=== PATIENT | male | born 1945 | race Caucasian/White ===

== ENCOUNTER 2023-11-12 13:33 | Observation (INO) | payer OTHER, BC ==
[2023-11-12] MEDS ORDERED: ASPIRIN 81 MG CHEWABLE TABLET ONE (14:05)
--- NOTE | 2023-11-12 14:29 | RAD REPORT ---
EXAM DESCRIPTION: RAD - Chest Single View - 11/12/2023 2:19 pm CLINICAL HISTORY: CHEST PAIN Chest pain. COMPARISON: <Comparisons> FINDINGS: Portable technique limits examination quality. Moderate bilateral pulmonary opacities are present likely representing pulmonary edema. The heart is mildly enlarged in size. No displaced fractures.Sternotomy wires. IMPRESSION: Mild CHF.
[2023-11-12 15:05] LABS: Specific Gravity 1.011 (1.005-1.030); Sqamous Epithelial None Seen /HPF (None Seen); Urine Bacteria None Seen /HPF (<20); Urine Bilirubin NEGATIVE (Negative); Urine Blood Negative (Negative); Urine Clarity Clear (Clear); Urine Color Light-Yellow (Yellow); Urine Culture Reflex Order NOT NEEDED; Urine Glucose NEGATIVE (Negative); Urine Ketones NEGATIVE (Negative); Urine Microscopic Reflex YN ORDER UMIC; Urine Mucus Slight /HPF (None Seen); Urine Nitrite NEGATIVE (Negative); Urine Protein NEGATIVE (Negative); Urine RBC <5 /HPF (None Seen); Urine Urobilinogen Normal (Normal); Urine WBC <5 /HPF (<5)
[2023-11-12 15:08] LABS: Absolute Basophils 0.1 K/uL (0-0.5); Absolute Eosinophils 0.2 K/uL (0-0.5); Absolute Lymphocytes (CBC) 1.5 K/uL (0.7-4.9); Absolute Monocytes 0.7 K/uL (0.1-1.3); Basophils % 0.7 % (0-1.3); Eosinophils % 2.6 % (0-4.4); Hematocrit 32.7 % (39.6-49.0); Hemoglobin 10.9 g/dL (13.6-17.9); Lymphocytes % 19.9 % (15.3-44.8); MCHC 33.2 g/dL (32.0-36.0); MCV 90.4 fL (80-100); MPV 7.9 fL (7.6-11.3); Monocytes % 9.1 % (3.3-12.3); Neutrophils % 67.7 % (41.7-73.7); Nucleated Red Blood Cells % 0.1 % (0-0); Platelets 219 thou/uL (152-406); RBC Red Blood Cell Count 3.62 M/uL (4.33-5.43)
[2023-11-12 15:17] LABS: Albumin 3.2 g/dL (3.4-5.0); Albumin/Globulin Ratio 0.8 (1.1-1.8); Anion Gap 6.8 mEq/L (5.0-15.0); Bilirubin Direct 0.1 mg/dL (0-0.2); Bilirubin Indirect, Calculated 0.2 mg/dL (0.2-0.8); Bilirubin Total 0.3 mg/dL (0.2-1.0); Globulin 4.1 g/dL (2.3-3.5); Magnesium 2.2 mg/dL (1.6-2.4); Potassium 3.8 mEq/L (3.5-5.1); Protein, Total 7.3 g/dL (6.4-8.2); Troponin High Sensitivity 3.8 pg/mL (<58.9)
[2023-11-12 15:22] LABS: PT Prothrombin Time 13.1 SECONDS (9.5-12.5); Protime INR 1.2
[2023-11-12] MEDS ORDERED: FUROSEMIDE 20 MG/ 2ML VIAL ONE (17:02)
[2023-11-12] MEDS ORDERED: LEVALBUTEROL 1.25 MG/3 ML NEB ONE (17:02)
[2023-11-12] MEDS ORDERED: IPRATROPIUM BROM 0.5MG/2.5ML ONE (17:02)
[2023-11-12] MEDS ORDERED: METOPROLOL XL 50 MG TAB PO ONE (17:03)
--- NOTE | 2023-11-12 17:21 | ER ---
Nurse's Notes [facility] Name: Eladio Sloan Jr Age: 78 yrs Sex: Male : 1945 Arrival Date: 11/12/2023 Time: 13:33 Bed 8 Private MD: Diagnosis: Chest pain, unspecified;Combined systolic (congestive) and diastolic (congestive) heart failure;Obesity, unspecified;COPD/ Chronic obstructive pulmonary disease, unspecified Presentation: 11/11 14:07 Chief complaint: Patient states: Pt c/o reproducible, non-radiating left side chest tl4 pain x 1 week. Pt states pain has remained consistent. Pt denies associated symptoms including SOB, diaphoresis, nausea, dizziness. Pt had CABG x 3 approx 2 months ago. Surgical scar appears well healed, no s/s of infection. Coronavirus screen: At this time, the client does not indicate any symptoms associated with coronavirus-19. Ebola Screen: No symptoms or risks identified at this time. Initial Sepsis Screen: Does the patient meet any 2 criteria? Yes Does the patient have a suspected source of infection? No. Patient's initial sepsis screen is negative. Risk Assessment: Do you want to hurt yourself or someone else? Patient reports no desire to harm self or others. Onset of symptoms was November 05, 2023. 14:07 Method Of Arrival: EMS: [facility] tl4 14:07 Acuity: ZEYAD 2 tl4 Triage Assessment: 14:20 General: Appears in no apparent distress. Behavior is calm, cooperative. Pain: tl4 Complains of pain in chest. EENT: No deficits noted. No signs and/or symptoms were reported regarding the EENT system. Neuro: Level of Consciousness is awake, alert, obeys commands, Oriented to person, place, time, situation, Company Secretary are equal bilaterally Moves all extremities. Speech is normal, Facial symmetry appears normal, Denies weakness dizziness, paresthesias numbness. Cardiovascular: Reports chest pain, Capillary refill < 3 seconds Patient's skin is warm and dry. Rhythm is sinus rhythm Chest pain is described as Pain is 8 out of 10 on a pain scale. quality is sharp, is located in left began 1 week ago is aggravated by activity, breathing. Respiratory: Airway is patent Respiratory effort is even, unlabored, Respiratory pattern is regular, symmetrical, Breath sounds are clear bilaterally. Denies shortness of breath. GI: No deficits noted. No signs and/or symptoms were reported involving the gastrointestinal system. Bowel sounds present X 4 quads. Abd is soft and non tender. : No deficits noted. No signs and/or symptoms were reported regarding the genitourinary system. Derm: No deficits noted. No signs and/or symptoms reported regarding the dermatologic system. Musculoskeletal: No deficits noted. No signs and/or symptoms reported regarding the musculoskeletal system. Historical: - Allergies: 14:13 Codeine; tl4 14:13 PENICILLINS; tl4 - Home Meds: 14:15 aspirin 81 mg Oral tablet,chewable 1 tab daily [Active]; atorvastatin 40 mg oral tablet tl4 1 tab daily [Active]; benzonatate 200 mg oral capsule 1 cap [Active]; duloxetine 30 mg oral capsule,delayed release (e.c.) 1 cap daily [Active]; lorazepam 0.5 mg Oral tablet 1 tabs daily [Active]; meclizine 25 mg Oral tablet 1 tab daily [Active]; metoprolol succinate 50 mg oral Tablet, Extended Release 24 hr 1 tab 2 times per day [Active]; oxybutynin chloride 5 mg Oral tablet 1 tab 2 times per day [Active]; tolterodine 1 mg oral tablet 1 tab 2 times per day [Active]; - PMHx: 14:15 Chronic obstructive lung disease; Hypertensive disorder; High cholesterol; tl4 - PSHx: 14:13 Coronary artery bypass graft; Carpal tunnel; tl4 14:15 Back surgery; tl4 - Immunization history:: Adult Immunizations unknown. - Infectious Disease History:: Denies. - Social history:: Smoking status: Patient/guardian denies using tobacco, the patient reports quitting approximately 11 years ago. Screenin:23 [facility] ED Fall Risk Assessment (Adult) History of falling in the last 3 months, tl4 including since admission No falls in past 3 months (0 pts) Confusion or Disorientation No (0 pts) Intoxicated or Sedated No (0 pts) Impaired Gait No (0 pts) Mobility Assist Device Used Yes (1 pt) Altered Elimination No (0 pt) Score/Fall Risk Level 0 - 2 = Low Risk Oriented to surroundings, Maintained a safe environment, Educated pt \T\ family on fall prevention, incl call for assistance when getting out of bed, Assessed \T\ reinforced patient's understanding of fall precautions, Hourly rounding (assess needs \T\ fall precautionary measures) done, Used ambulatory aids as needed (educated on \T\ assisted with), Used gait belt as appropriate. Abuse screen: Denies threats or abuse. Denies injuries from another. Nutritional screening: No deficits noted. Tuberculosis screening: No symptoms or risk factors identified. Assessment: 15:03 Reassessment: Patient and/or family updated on plan of care and expected duration. Pain tl4 level reassessed. Patient is alert, oriented x 3, equal unlabored respirations, skin warm/dry/pink. Pt states no changes in condition. Pt denies any needs at this time. Will continue to monitor. 17:00 Reassessment: No changes from previously documented assessment. Patient and/or family mb9 updated on plan of care and expected duration. Pain level reassessed. Patient is alert, oriented x 3, equal unlabored respirations, skin warm/dry/pink. 18:21 Reassessment: No changes from previously documented assessment. Patient and/or family tl4 updated on plan of care and expected duration. Pain level reassessed. Patient is alert, oriented x 3, equal unlabored respirations, skin warm/dry/pink. 19:21 Reassessment: No changes from previously documented assessment. Patient and/or family tl4 updated on plan of care and expected duration. Pain level reassessed. Patient is alert, oriented x 3, equal unlabored respirations, skin warm/dry/pink. Vital Signs: 14:07 BP 140 / 78; Pulse 74; Resp 21; Temp 98.6(O); Pulse Ox 99% on R/A; Weight 96.62 kg; tl4 Height 6 ft. 0 in. ; Pain 6/10; 14:22 BP 149 / 87; Pulse 73; Resp 18; Pulse Ox 100% on R/A; tl4 15:04 BP 141 / 84; Pulse 74; Resp 16; Pulse Ox 100% on R/A; tl4 15:45 BP 141 / 57; Pulse 64; Resp 17; Pulse Ox 97% on R/A; tl4 16:17 BP 163 / 77; Pulse 74; Resp 15; Pulse Ox 98% on R/A; tl4 17:47 Pulse 70; Resp 18; Pulse Ox 100% on R/A; mb9 18:27 BP 137 / 65; Pulse 67; Resp 16; Pulse Ox 98% on R/A; Pain 4/10; tl4 19:21 BP 116 / 92; Pulse 65; Resp 16; Pulse Ox 98% on R/A; tl4 14:07 Body Mass Index 28.89 (96.62 kg, 182.88 cm) tl4 14:07 Pain Scale: Adult tl4 18:27 Pain Scale: Adult tl4 Vitals: 14:22 Cardiac Rhythm Assessment Regular Sinus rhythm. tl4 [place] Coma Score: 14:22 Eye Response: spontaneous(4). Motor Response: obeys commands(6). Verbal Response: tl4 oriented(5). Total: 15. ED Course: 13:52 Patient arrived in ED. em1 13:58 Tc Zhang MD is Attending Physician. yuriy 14:13 Triage completed. tl4 14:13 Arm band placed on right wrist. tl4 14:21 XRAY Chest (1 view) In Process Unspecified. EDMS 14:23 Patient has correct armband on for positive identification. Placed in gown. Bed in low tl4 position. Call light in reach. Side rails up X2. Adult w/ patient. Provided Education on: ED process. Client placed on continuous cardiac and pulse oximetry monitoring. NIBP monitoring applied. evp managing director on. Door closed. Noise minimized. Lights dimmed. Moved to private room. Warm blanket given. 14:23 No provider procedures requiring assistance completed. tl4 14:24 EKG done, by ED staff, reviewed by Tc Zhnag MD. Maintain EMS IV. Dressing intact. tl4 Good blood return noted. Site clean \T\ dry. Gauge \T\ site: 20g Left AC. 15:02 Urinalysis w/ reflexes Sent. tl4 15:02 Lipase Sent. tl4 15:02 Basic Metabolic Panel Sent. tl4 15:02 CBC with Diff Sent. tl4 15:02 LFT's Sent. tl4 15:03 Magnesium Sent. tl4 15:03 NT PRO-BNP Sent. tl4 15:03 PT-INR Sent. tl4 15:03 Troponin HS Sent. tl4 17:19 Jose Valle MD is Hospitalizing Provider. yuriy Administered Medications: 14:05 Drug: Aspirin PO Chewable Tablet 81 mg PO once Route: PO; tl4 18:22 Follow up: Response: No adverse reaction tl4 17:11 Drug: Metoprolol PO 50 mg PO once Route: PO; mb9 18:23 Follow up: Response: No adverse reaction tl4 17:11 Drug: Levalbuterol Inhalation 1.25 mg Inhalation once Route: Inhalation; mb9 18:23 Follow up: Response: No adverse reaction tl4 17:11 Drug: Ipratropium Inhalation Aerosol 0.5 mg Inhalation once Route: Inhalation; mb9 18:23 Follow up: Response: No adverse reaction tl4 17:12 Drug: Furosemide IVP 20 mg IVP once; give over 2 minutes Route: IVP; Site: left mb9 antecubital; 18:22 Follow up: Response: No adverse reaction tl4 Medication: 14:22 VIS not applicable for this client. tl4 Output: 18:09 Urine: 2000ml (Voided); Total: 2000ml. mb9 Outcome: 17:21 Decision to Hospitalize by Provider. [facility] 20:35 Patient left the ED. rv1 Signatures: Dispatcher [employer] EDTc Jewell MD MD cha Martinez, Eric em1 Gabriela Garcia, RN RN mb9 Angie Moody rv1 Guido Wu RN RN tl4
--- NOTE | 2023-11-12 17:21 | EDPHYS ---
Physician Documentation [facility] Name: Eladio Sloan Jr Age: 78 yrs Sex: Male : 1945 Arrival Date: 11/12/2023 Time: 13:33 Bed 8 Private MD: ED Physician Tc Zhang HPI: 11/11 16:53 This 78 yrs old Male presents to ER via EMS with complaints of Chest Pain. [facility] 16:53 The patient or guardian reports chest pain that is located primarily in the anterior yuriy chest wall, left. Onset: this morning, 1 day(s) ago. The pain does not radiate. Associated signs and symptoms: Pertinent positives: cough, lightheadedness, palpitations, shortness of breath. The chest pain is described as a pressure. Modifying factors: The symptoms are alleviated by nothing. the symptoms are aggravated by nothing. Severity of pain: At its worst the pain was mild in the emergency department the pain is unchanged. The patient has experienced similar episodes in the past, a few times. Historical: - Allergies: 14:13 Codeine; tl4 14:13 PENICILLINS; tl4 - Home Meds: 14:15 aspirin 81 mg Oral tablet,chewable 1 tab daily [Active]; atorvastatin 40 mg oral tablet tl4 1 tab daily [Active]; benzonatate 200 mg oral capsule 1 cap [Active]; duloxetine 30 mg oral capsule,delayed release (e.c.) 1 cap daily [Active]; lorazepam 0.5 mg Oral tablet 1 tabs daily [Active]; meclizine 25 mg Oral tablet 1 tab daily [Active]; metoprolol succinate 50 mg oral Tablet, Extended Release 24 hr 1 tab 2 times per day [Active]; oxybutynin chloride 5 mg Oral tablet 1 tab 2 times per day [Active]; tolterodine 1 mg oral tablet 1 tab 2 times per day [Active]; - PMHx: 14:15 Chronic obstructive lung disease; Hypertensive disorder; High cholesterol; tl4 - PSHx: 14:13 Coronary artery bypass graft; Carpal tunnel; tl4 14:15 Back surgery; tl4 - Immunization history:: Adult Immunizations unknown. - Infectious Disease History:: Denies. - Social history:: Smoking status: Patient/guardian denies using tobacco, the patient reports quitting approximately 11 years ago. ROS: 16:57 Constitutional: Negative for fever, chills, and weight loss, Eyes: Negative for injury, yuriy pain, redness, and discharge, ENT: Negative for injury, pain, and discharge, Neck: Negative for injury, pain, and swelling, Abdomen/GI: Negative for abdominal pain, nausea, vomiting, diarrhea, and constipation, Back: Negative for injury and pain, : Negative for injury, bleeding, discharge, and swelling, MS/Extremity: Negative for injury and deformity, Skin: Negative for injury, rash, and discoloration, Neuro: Negative for headache, weakness, numbness, tingling, and seizure, Psych: Negative for depression, anxiety, suicide ideation, homicidal ideation, and hallucinations, Allergy/Immunology: Negative for hives, rash, and allergies, Endocrine: Negative for neck swelling, polydipsia, polyuria, polyphagia, and marked weight changes, Hematologic/Lymphatic: Negative for swollen nodes, abnormal bleeding, and unusual bruising, 16:57 Cardiovascular: Positive for chest pain, palpitations, 16:57 Respiratory: Positive for shortness of breath, Exam: 16:57 Constitutional: This is a well developed, well nourished patient who is awake, alert, yuriy and in no acute distress. Head/Face: Normocephalic, atraumatic. Eyes: Pupils equal round and reactive to light, extra-ocular motions intact. Lids and lashes normal. Conjunctiva and sclera are non-icteric and not injected. Cornea within normal limits. Periorbital areas with no swelling, redness, or edema. ENT: Nares patent. No nasal discharge, no septal abnormalities noted. Tympanic membranes are normal and external auditory canals are clear. Oropharynx with no redness, swelling, or masses, exudates, or evidence of obstruction, uvula midline. Mucous membranes moist. Neck: Trachea midline, no thyromegaly or masses palpated, and no cervical lymphadenopathy. Supple, full range of motion without nuchal rigidity, or vertebral point tenderness. No Meningismus. Chest/axilla: Normal chest wall appearance and motion. Nontender with no deformity. No lesions are appreciated. Cardiovascular: Regular rate and rhythm with a normal S1 and S2. No gallops, murmurs, or rubs. Normal PMI, no JVD. No pulse deficits. Abdomen/GI: Soft, non-tender, with normal bowel sounds. No distension or tympany. No guarding or rebound. No evidence of tenderness throughout. Back: No spinal tenderness. No costovertebral tenderness. Full range of motion. Male : Normal genitalia with no discharge or lesions. Skin: Warm, dry with normal turgor. Normal color with no rashes, no lesions, and no evidence of cellulitis. MS/ Extremity: Pulses equal, no cyanosis. Neurovascular intact. Full, normal range of motion. Neuro: Awake and alert, GCS 15, oriented to person, place, time, and situation. Cranial nerves II-XII grossly intact. Motor strength 5/5 in all extremities. Sensory grossly intact. Cerebellar exam normal. Normal gait. Psych: Awake, alert, with orientation to person, place and time. Behavior, mood, and affect are within normal limits. 16:57 ECG was reviewed by the Attending Physician. 16:57 Respiratory: Exam negative for the patient does not display signs of respiratory distress, Respirations: normal, no acute changes, Breath sounds: are clear throughout, no bronchial sounds, no decreased breath sounds, no rales, rhonchi, no stridor, no wheezing, Vital Signs: 14:07 BP 140 / 78; Pulse 74; Resp 21; Temp 98.6(O); Pulse Ox 99% on R/A; Weight 96.62 kg; tl4 Height 6 ft. 0 in. ; Pain 6/10; 14:22 BP 149 / 87; Pulse 73; Resp 18; Pulse Ox 100% on R/A; tl4 15:04 BP 141 / 84; Pulse 74; Resp 16; Pulse Ox 100% on R/A; tl4 15:45 BP 141 / 57; Pulse 64; Resp 17; Pulse Ox 97% on R/A; tl4 16:17 BP 163 / 77; Pulse 74; Resp 15; Pulse Ox 98% on R/A; tl4 17:47 Pulse 70; Resp 18; Pulse Ox 100% on R/A; mb9 18:27 BP 137 / 65; Pulse 67; Resp 16; Pulse Ox 98% on R/A; Pain 4/10; tl4 19:21 BP 116 / 92; Pulse 65; Resp 16; Pulse Ox 98% on R/A; tl4 14:07 Body Mass Index 28.89 (96.62 kg, 182.88 cm) tl4 14:07 Pain Scale: Adult tl4 18:27 Pain Scale: Adult tl4 [place] Coma Score: 14:22 Eye Response: spontaneous(4). Motor Response: obeys commands(6). Verbal Response: tl4 oriented(5). Total: 15. MDM: 13:58 Patient medically screened. yuriy 17:00 Antibiotic administration: Not indicated. Differential diagnosis: Anemia Anxiety yuriy Reaction asthma, Bronchitis CHF exacerbation, Chronic Obstructive Pulmonary Disease abnormal EKG, acute myocardial infarction, acute pericarditis, anxiety, coronary artery disease congestive heart failure costochondritis, hiatal hernia, pancreatitis, pericarditis, pneumonia, pulmonary embolus, thoracic aortic disection, unstable angina, Myocardial Infarction pneumonia, pulmonary edema, Pulmonary Embolism reactive airway disease, Sepsis. HEART Score: History: Slightly Suspicious (0), ECG: Normal (0), Age: > or = 65 years (2), Risk Factors: > or = 3 Risk factors for atherosclerotic disease (2), [Hypercholesterolemia] [Hypertension] [DM] [+ Family HX] [Obesity] Troponin: < or = 1 x Normal Limit (0). The patient was given aspirin in the Emergency Department. SAL Risk Score: 1 - patient's age is greater or equal to 65 years, 1 - Three or more CAD risk factors, 1- Known CAD, 1 - ASA use in past 7 days, TOTAL SCORE = 4. Immunization status: Pneumococcal vaccine: within last 5 years. Influenza vaccine: within last 5 years. Data reviewed: vital signs, nurses notes, lab test result(s), EKG, radiologic studies, plain films. Consideration of Admission/Observation Patient was admitted/placed on observation. Escalation of care including admission/observation considered. I considered the following discharge prescriptions or medication management in the emergency department Medications were administered in the Emergency Department. See MAR. Independent interpretation of the following test(s) in the Emergency Department EKG: See my EKG interpretation above. Test considered but Not performed: CT: no ct chest . Care significantly affected by the following chronic conditions: Hypertension, Chronic Obstructive Pulmonary Disease, Obesity, cabg, cad. Counseling: I had a detailed discussion with the patient and/or guardian regarding the historical points, exam findings, and any diagnostic results supporting the discharge/admit diagnosis, lab results, radiology results, the need for further work-up and treatment in the hospital. 11/11 14:00 Order name: Basic Metabolic Panel; Complete Time: 16:47 11/11 14:00 Order name: CBC with Diff; Complete Time: 16:47 [facility] 11/11 14:00 Order name: LFT's; Complete Time: 16:47 11/11 14:00 Order name: Magnesium; Complete Time: 16:47 11/11 14:00 Order name: NT PRO-BNP; Complete Time: 16:47 11/11 14:00 Order name: PT-INR; Complete Time: 16:47 [facility] 11/11 14:00 Order name: Troponin HS; Complete Time: 16:47 11/11 14:00 Order name: Lipase; Complete Time: 16:47 [facility] 11/11 14:00 Order name: Urinalysis w/ reflexes; Complete Time: 16:47 [facility] 11/11 16:53 Order name: Troponin HS: 5pm; Complete Time: 20:18 [facility] 11/11 18:47 Order name: CBC with Automated Diff EDMS 11/11 18:47 Order name: CBC with Automated Diff EDMS 11/11 18:47 Order name: Comprehensive Metabolic Panel EDMS 11/11 18:47 Order name: Comprehensive Metabolic Panel EDMS 11/11 18:47 Order name: Lipid Profile EDMS 11/11 18:47 Order name: Lipid Profile EDMS 11/11 18:47 Order name: Magnesium EDMS 11/11 18:47 Order name: Magnesium EDMS 11/11 18:47 Order name: Troponin High Sensitivity EDMS 11/11 18:47 Order name: Troponin High Sensitivity EDMS 11/11 18:47 Order name: Troponin High Sensitivity EDMS 11/11 14:00 Order name: XRAY Chest (1 view); Complete Time: 16:47 11/11 18:47 Order name: CONS Physician Consult EDMS 11/11 14:00 Order name: Cardiac monitoring; Complete Time: 14:03 [facility] 11/11 14:00 Order name: EKG - Nurse/Tech; Complete Time: 14:03 [facility] 11/11 14:00 Order name: IV Saline Lock; Complete Time: 14:03 [facility] 11/11 14:00 Order name: Labs collected and sent; Complete Time: 15:02 [facility] 11/11 14:00 Order name: O2 Per Protocol; Complete Time: 14:03 [facility] 11/11 14:00 Order name: O2 Sat Monitoring; Complete Time: 14:03 yuriy EC:57 Rate is 71 beats/min. Rhythm is regular. QRS [place] is Normal. IA interval is normal. QRS yuriy interval is normal. QT interval is normal. No Q waves. T waves are Normal. No ST changes noted. Clinical impression: Normal ECG and No evidence of ischemia. Interpreted by me. Reviewed by me. Administered Medications: 14:05 Drug: Aspirin PO Chewable Tablet 81 mg PO once Route: PO; tl4 18:22 Follow up: Response: No adverse reaction tl4 17:11 Drug: Metoprolol PO 50 mg PO once Route: PO; mb9 18:23 Follow up: Response: No adverse reaction tl4 17:11 Drug: Levalbuterol Inhalation 1.25 mg Inhalation once Route: Inhalation; mb9 18:23 Follow up: Response: No adverse reaction tl4 17:11 Drug: Ipratropium Inhalation Aerosol 0.5 mg Inhalation once Route: Inhalation; mb9 18:23 Follow up: Response: No adverse reaction tl4 17:12 Drug: Furosemide IVP 20 mg IVP once; give over 2 minutes Route: IVP; Site: left mb9 antecubital; 18:22 Follow up: Response: No adverse reaction tl4 Disposition Summary: 11/12/23 17:21 Hospitalization Ordered Notes: Hospitalization Status: Observation yuriy Provider: Jose Valle cha Location: Telemetry/MedSurg (observation) yuriy Condition: Fair yuriy Problem: new yuriy Symptoms: have improved yuriy Bed/Room Type: Standard [facility] Room Assignment: 425(11/12/23 19:03) Diagnosis - Chest pain, unspecified yuriy - Combined systolic (congestive) and diastolic (congestive) heart failure yuriy - Obesity, unspecified yuriy - COPD/ Chronic obstructive pulmonary disease, unspecified yuriy Forms: - Medication Reconciliation Form yuriy - SBAR form yuriy - Leadership Thank You Letter yuriy Signatures: Dispatcher [employer] Tc Vargas MD MD cha Waters, Shelly, FLIGHT OPERATIONS COORDINATOR-C FLIGHT OPERATIONS COORDINATOR-Shara Odell, WANDA RN Gabriela Perea RN RN mb9 Guido Wu RN RN tl4 Corrections: (The following items were deleted from the chart) 14:00 14:00 BASIC METABOLIC PANEL+C.LAB.BRZ ordered. EDAR EDMS 14:00 14:00 CBC+H.LAB.BRZ ordered. EDMS EDMS 14:00 14:00 HEPATIC FUNCTION+C.LAB.BRZ ordered. EDMS EDMS 14:00 14:00 MAGNESIUM+C.LAB.BRZ ordered. EDMS EDMS 14:00 14:00 PROBNP+C.LAB.BRZ ordered. EDMS EDMS 14:00 14:00 PROTIME (+INR)+COAG.LAB.BRZ ordered. EDMS EDMS 14:00 14:00 Troponin High Sensitivity+C.LAB.BRZ ordered. EDMS EDMS 14:00 14:00 LIPASE+C.LAB.BRZ ordered. EDMS EDMS 14:00 14:00 Urinalysis+U.LAB.BRZ ordered. EDMS EDMS 14:00 14:00 Chest Single View+RAD.RAD.BRZ ordered. EDMS EDMS 19:03 17:21 yuriy cg
[2023-11-12] MEDS ORDERED: MAGNESIUM HYDROXIDE 8% 30 ML PO PRN (18:39)
[2023-11-12] MEDS ORDERED: LORAZEPAM 0.5 MG TABLET PO PRN (18:46)
--- NOTE | 2023-11-12 20:12 | P.HP ---
Certification for Inpatient Patient admitted to: Observation With expected LOS: <2 Midnights Patient will require the following post-hospital care: None Practitioner: I am a practitioner with admitting privileges, knowledge of patient current condition, hospital course, and medical plan of care. Services: Services provided to patient in accordance with Admission requirements found in Title 42 Section 412.3 of the Code of Federal Regulations <Jojo Mckeon - Last Filed: 11/12/23 20:03> Patient History Date of Service: 11/12/23 Reason for admission: CP, SOB History of Present Illness: Mr. Sloan is a 78-year-old male with a past medical history of hypertension, hyperlipidemia, COPD, CHF, coronary artery disease. He had a CABG in September of this year. As his children live in this area he moved in with his daughter, Padmini Peters. He has been going to cardiac rehab here in [place] twice a week for 2 weeks. On arrival today at rehab, he complained of a bit of chest pressure on the left and some shortness of breath. He was sent to the emergency department for evaluation. In the emergency department his vitals were consistent in the 140s/80s, heart rate in the 70s, respiratory rate 18, oxygen saturations between 97%-100%. He received aspirin 81 mg p.o., Xopenex and Atrovent x 1 treatment, metoprolol 50 mg p.o., Lasix 20 mg IV. EKG heart rate 71, normal sinus rhythm, no ectopy, QTc 419. Lab evaluation shows a troponin of 3.4, normal electrolytes, and mild anemia at 10.9 and 32.7 otherwise normal CBC, liver enzymes are within normal, BNP is elevated at 502, magnesium 2.2 urinalysis normal, lipase 18. Radiologic evaluation shows "moderate bilateral pulmonary opacities are present likely representing pulmonary edema. The heart is mildly enlarged in size. No displaced fractures. Sternotomy wires. Impression mild CHF." Will observe Mr. Sloan overnight for serial troponins and evaluation of his respiratory status. He will likely be discharged in the morning. Home medications list reviewed: Yes - Past Medical/Surgical History Has patient received pneumonia vaccine in the past: No Diabetic: No -: CAD -: HTN -: HLD -: COPD -: CABG -: Carpal tunnel -: back Psychosocial/ Personal History: His in November of last year. They lived near [place]. Mr. Sloan had a CABG in September 2023 in [place]. All of his children live in this area. He came down to live with his daughter Padmini Peters and has been going for 2 weeks to [facility] cardiac rehab. He has a walker and a wheelchair - Family History Family History: Reviewed- Non-Contributory - Social History Smoking Status: Former smoker Alcohol use: No CD- Drugs: No Caffeine use: Yes Place of Residence: Home <LindaJojo Hidalgo - Last Filed: 11/12/23 20:03> Date of Service: 11/12/23 <Adali Smith - Last Filed: 11/12/23 22:46> Allergies codeine Allergy (Verified 11/12/23 20:04) Penicillins Allergy (Verified 11/12/23 20:04) Review of Systems 10-point ROS is otherwise unremarkable General: As per HPI Respiratory: As per HPI Cardiovascular: As per HPI <MckeonVickieedda Hidalgo - Last Filed: 11/12/23 20:03> Physical Examination - Physical Exam General: Alert, In no apparent distress, Oriented x3, Obese, Other (pale) HEENT: Atraumatic, Normocephalic, PERRLA Neck: JVD not distended Respiratory: Normal air movement, Diminished Cardiovascular: Normal pulses, Regular rate/rhythm Capillary refill: <2 Seconds Gastrointestinal: Soft and benign Musculoskeletal: No clubbing, No swelling Integumentary: Other (pale, well approximated, healing sternal scar) Neurological: Normal speech, Normal tone Lymphatics: No axilla or inguinal lymphadenopathy External genitalia: Deferred Rectal: Deferred - Studies Laboratory Data (last 24 hrs) 11/12/23 11/12/23 11/12/23 14:34 14:34 14:34 WBC 7.40 Hgb 10.9 L Hct 32.7 L Plt Count 219 PT 13.1 H INR 1.20 Sodium 137 Potassium 3.8 BUN 25 H Creatinine 0.85 Glucose 94 Magnesium 2.2 Total Bilirubin 0.3 AST 21 ALT 34 Alkaline Phosphatase 65 Lipase 18 <Jojo Mckeon Rocky - Last Filed: 11/12/23 20:03> - Studies Laboratory Data (last 24 hrs) 11/12/23 11/12/23 11/12/23 14:34 14:34 14:34 WBC 7.40 Hgb 10.9 L Hct 32.7 L Plt Count 219 PT 13.1 H INR 1.20 Sodium 137 Potassium 3.8 BUN 25 H Creatinine 0.85 Glucose 94 Magnesium 2.2 Total Bilirubin 0.3 AST 21 ALT 34 Alkaline Phosphatase 65 Lipase 18 <Adali Smith Gabbie - Last Filed: 11/12/23 22:46> Assessment and Plan - Plan Chest pain with mild CHF: amiodarone 200mg po daily Lasix 20mg IV BID Monitor and replete electrolytes ASA 81mg po daily COPD: Nebs q 6h Spot check pulse ox O2 prn HTN: Lisinopril 2.5mg daily Metoprolol 50mg BID HLD: Atorvastatin 40mg po q hs Depression/anxiety: lorazepam 0.5mg po TID prn Duloxetine 30mg po daily Fall precautions DVT/GI prophylaxis: Lovenox/Protonix Discharge Plan: Home Plan to discharge in: 24 Hours - Advance Directives Does patient have a Living Will: Yes Does patient have a Durable POA for Healthcare: Yes <Jojo Mckeon - Last Filed: 11/12/23 20:03> - Plan Pt seen and examined. I agree with the note by the SUPER[employer]OR [employer]IN[employer]. Pt is a 78yo male with past medical history of hypertension, hyperlipidemia, COPD, CHF, and coronary artery disease s/p CABG in September who presents with chest pain and SOB. Of note, pt moved to [place] to live with his daughter. He has been going to cardiac rehab twice a week. While at the rehab today, pt complained of SOB and chest pressure and he was sent to the ER for evaluation. On arrival, EKG showed normal sinus rhythm with QTc 419. Lab studies show troponin of 3.4, normal electrolytes, hgb 10.9, BNP 502, magnesium 2.2 urinalysis normal, and lipase 18. CXR shows pulmonary edema. The heart is mildly enlarged in size. No displaced fractures with sternotomy wires in place. At bedside, pt is in NAD. A/P: Chest pain: Likely musculoskeletal. Will continue prn pain med. and trend troponin ( 3.4) CHF: BNP is 502. Will f/u Echo. Continue lasix 20mg iv BID, strict I/O and daily weight. Hx of CAD s/p CABG in sep, 2023. Will continue cardiac rehab when discharged. Hx of COPD: continue prn duoneb and oxygen. Continue home meds for other chronic medically <Adali Smith - Last Filed: 11/12/23 22:46>
[2023-11-12] MEDS ORDERED: SODIUM CHLORIDE 0.9% 10ML INJ IV PRN (20:31)
[2023-11-12] MEDS: ALBUTEROL 2.5 MG/3 ML NEB SOL NEB SCH (20:53)
[2023-11-12] MEDS: DULOXETINE 30 MG CAP PO SCH (21:34)
[2023-11-12] MEDS: ATORVASTATIN 40 MG TAB PO SCH (21:34)
[2023-11-12] MEDS: ENOXAPARIN 40 MG/0.4 ML SQ SCH (21:34)
[2023-11-12] MEDS: METOPROLOL TAR 50 MG TAB PO SCH (21:35)
[2023-11-12] MEDS: LORAZEPAM 0.5 MG TABLET PO SCH (21:35)
[2023-11-12] MEDS: TRAMADOL HCL 50 MG TAB PO PRN (21:47)
[2023-11-12 23:40] VITALS: O2SAT 98
[2023-11-13 04:19] LABS: Absolute Basophils 0.1 K/uL (0-0.5); Absolute Eosinophils 0.2 K/uL (0-0.5); Absolute Lymphocytes (CBC) 1.5 K/uL (0.7-4.9); Absolute Monocytes 0.7 K/uL (0.1-1.3); Absolute Neutrophil 4.2 K/uL (1.8-8.0); Basophils % 0.8 % (0-1.3); Eosinophils % 2.6 % (0-4.4); Hematocrit 29.6 % (39.6-49.0); Lymphocytes % 22.1 % (15.3-44.8); MCH 30.4 pg (27.0-35.0); MCHC 33.9 g/dL (32.0-36.0); MCV 89.7 fL (80-100); MPV 7.5 fL (7.6-11.3); Monocytes % 10.9 % (3.3-12.3); Neutrophils % 63.6 % (41.7-73.7); Nucleated Red Blood Cells % 0.1 % (0-0); Platelets 205 thou/uL (152-406); Red Cell Distribution Width 14.5 % (12.1-15.2)
[2023-11-13 04:48] LABS: Albumin 3.2 g/dL (3.4-5.0); Albumin/Globulin Ratio 0.9 (1.1-1.8); Anion Gap 4.8 mEq/L (5.0-15.0); Bilirubin Total 0.3 mg/dL (0.2-1.0); Globulin 3.5 g/dL (2.3-3.5); Magnesium 2.4 mg/dL (1.6-2.4); Potassium 3.8 mEq/L (3.5-5.1); Protein, Total 6.7 g/dL (6.4-8.2); Troponin High Sensitivity 4.2 pg/mL (<58.9)
[2023-11-13 06:48] VITALS: BMI 28.8
[2023-11-13] MEDS: AMIODARONE HCL 200 MG TAB PO SCH (09:08)
[2023-11-13] MEDS: lisinopriL 5 MG TAB PO SCH (09:08)
[2023-11-13] MEDS: FERROUS SULFATE 325 MG TAB PO SCH (09:08)
[2023-11-13] MEDS: FUROSEMIDE 20 MG/ 2ML VIAL IV SCH (09:08)
[2023-11-13] MEDS: ASPIRIN EC 81 MG TAB PO SCH (09:08)
[2023-11-13] MEDS: PANTOPRAZOLE 40 MG INJ IVP SCH (09:09)
[2023-11-13] MEDS ORDERED: POLYETHYL GLY 3350 17 GM/DOSE PO PRN (09:55)
--- NOTE | 2023-11-13 10:02 | P.PN ---
Subjective Date of Service: 11/13/23 Chief Complaint: CP, SOB Subjective: No C/O voiced, Improving (Denies CP, SOB overnight) <Jojo Mckeon - Last Filed: 11/13/23 10:00> Date of Service: 11/13/23 <Adali Smith - Last Filed: 11/13/23 13:01> Review of Systems 10-point ROS is otherwise unremarkable General: Weakness, Malaise, As per HPI Respiratory: As per HPI Cardiovascular: As per HPI Neurological: As per HPI <Jojo Mckeon - Last Filed: 11/13/23 10:00> Physical Examination - Vital Signs Temperature: 97.5 F Blood Pressure: 125/68 Pulse: 82 Respirations: 16 Pulse Ox (%): 93 - Physical Exam General: Alert, In no apparent distress, Oriented x3 HEENT: Atraumatic, Normocephalic Neck: JVD not distended Respiratory: Clear to auscultation bilaterally, Normal air movement Cardiovascular: Regular rate/rhythm, Normal S1 S2 Capillary refill: <2 Seconds Gastrointestinal: Soft and benign Musculoskeletal: No clubbing, No swelling Integumentary: No rashes, Other (mild pallor) Neurological: Normal affect, Abnormal strength Lymphatics: No axilla or inguinal lymphadenopathy External genitalia: Deferred Rectal: Deferred - Studies Laboratory Data (last 24 hrs) 11/12/23 11/12/23 11/12/23 14:34 14:34 14:34 WBC 7.40 Hgb 10.9 L Hct 32.7 L Plt Count 219 PT 13.1 H INR 1.20 Sodium 137 Potassium 3.8 BUN 25 H Creatinine 0.85 Glucose 94 Magnesium 2.2 Total Bilirubin 0.3 AST 21 ALT 34 Alkaline Phosphatase 65 Lipase 18 <Jojo Mckeon - Last Filed: 11/13/23 10:00> - Studies Laboratory Data (last 24 hrs) 11/12/23 11/12/23 11/12/23 14:34 14:34 14:34 WBC 7.40 Hgb 10.9 L Hct 32.7 L Plt Count 219 PT 13.1 H INR 1.20 Sodium 137 Potassium 3.8 BUN 25 H Creatinine 0.85 Glucose 94 Magnesium 2.2 Total Bilirubin 0.3 AST 21 ALT 34 Alkaline Phosphatase 65 Lipase 18 <Adali Smith - Last Filed: 11/13/23 13:01> Assessment And Plan - Plan Chest pain with mild CHF: amiodarone 200mg po daily Lasix 20mg IV BID Monitor and replete electrolytes ASA 81mg po daily COPD: Nebs q 6h Spot check pulse ox O2 prn HTN: Lisinopril 2.5mg daily Metoprolol 50mg BID HLD: Atorvastatin 40mg po q hs Depression/anxiety: lorazepam 0.5mg po TID prn Duloxetine 30mg po daily Fall precautions PT eval SW eval - pt might greatly benefit from IPR DVT/GI prophylaxis: Lovenox/Protonix <Jojo Mckeon - Last Filed: 11/13/23 10:00> - Plan Pt seen and examined. I agree with the note by the THERMODYNAMICS PROFESSOR. Continue home cardiac meds. He has a lot of stressors in his life. Consulted PT. Pt may benefit from inpatient rehab placement. <Adali Smith - Last Filed: 11/13/23 13:01>
--- NOTE | 2023-11-13 13:39 | EKG ---
Test Date: 2023-11-12 Test Time: 13:53:54 Unloading Checker: TL MEASUREMENT RESULTS: Intervals: Rate: 71 GA: 204 QRSD: 94 QT: 386 QTc: 419 [place]: P: 54 GA: 204 QRS: 75 T: 50 INTERPRETIVE STATEMENTS: Normal sinus rhythm Normal ECG No previous ECG available for comparison Electronically Signed On 11-13-23 13:37:29 CDT by Vaughn Corea
--- NOTE | 2023-11-13 15:56 | P.DS ---
Admission Date: 11/12/23 Discharge Date: 11/13/23 Comment: Too high level for inpatient rehab. Continue outpatient cardiac rehab Reason for Admission: AALIYAH, NALLELY Consultations: Dr. Corea Physical Therapy Brief History of Present Illness: Mr. Sloan is a 78-year-old male with a past medical history of hypertension, hyperlipidemia, COPD, CHF, coronary artery disease. He had a CABG in September of this year. As his children live in this area he moved in with his daughter, Padmini Peters. He has been going to cardiac rehab here in [place] twice a week for 2 weeks. On arrival today at rehab, he complained of a bit of chest pressure on the left and some shortness of breath. He was sent to the emergency department for evaluation. In the emergency department his vitals were consistent in the 140s/80s, heart rate in the 70s, respiratory rate 18, oxygen saturations between 97%-100%. He received aspirin 81 mg p.o., Xopenex and Atrovent x 1 treatment, metoprolol 50 mg p.o., Lasix 20 mg IV. EKG heart rate 71, normal sinus rhythm, no ectopy, QTc 419. Lab evaluation shows a troponin of 3.4, normal electrolytes, and mild anemia at 10.9 and 32.7 otherwise normal CBC, liver enzymes are within normal, BNP is elevated at 502, magnesium 2.2 urinalysis normal, lipase 18. Radiologic evaluation shows "moderate bilateral pulmonary opacities are present likely representing pulmonary edema. The heart is mildly enlarged in size. No displaced fractures. Sternotomy wires. Impression mild CHF." Will observe Mr. Sloan overnight for serial troponins and evaluation of his respiratory status. He will likely be discharged in the morning. Hospital Course: There were no complications over the course of the evening. Mr. Sloan is feeling well, denies chest pain, denies shortness of breath. His laboratory evaluation was negative. He was cleared for outpatient rehab by Dr. Corea. He worked with PT and is quite high functioning. <Jojo Mckeon - Last Filed: 11/13/23 15:57> Admission Date: 11/12/23 Discharge Date: 11/13/23 Hospital Course: Pt seen and examined. I agree with the note by the SCRUBBER MACHINE TENDER. Cardiology evaluated pt and cleared him for discharge. The chest pain is musculoskeletal. Continue cardiac rehab. Ok to discharge pt. <Adali Smith C - Last Filed: 11/13/23 17:09> Disposition: ROUTINE DISCHARGE Discharge Condition: GOOD Vital Signs/Physical Exam: Temp Pulse Resp BP Pulse Ox 98 F 73 15 133/63 92 11/13/23 11:45 11/13/23 11:45 11/13/23 11:45 11/13/23 11:45 11/13/23 11:45 General: Alert, In no apparent distress, Oriented x3 HEENT: Atraumatic, Normocephalic, PERRLA Neck: 2+ carotid pulse no bruit, JVD not distended Respiratory: Clear to auscultation bilaterally, Normal air movement Cardiovascular: Normal pulses, Regular rate/rhythm Capillary refill: <2 Seconds Gastrointestinal: Soft and benign Musculoskeletal: No clubbing, No swelling Integumentary: No rashes Neurological: Normal speech, Sensation intact Lymphatics: No axilla or inguinal lymphadenopathy External genitalia: Deferred Laboratory Data at Discharge: WBC 6.70 thou/uL (4.3-10.9) 11/13/23 04:10 Hgb 10.0 g/dL (13.6-17.9) L D 11/13/23 04:10 Hct 29.6 % (39.6-49.0) L 11/13/23 04:10 Plt Count 205 thou/uL (152-406) 11/13/23 04:10 PT 13.1 SECONDS (9.5-12.5) H 11/12/23 14:34 INR 1.20 11/12/23 14:34 Sodium 141 mEq/L (136-145) 11/13/23 04:10 Potassium 3.8 mEq/L (3.5-5.1) 11/13/23 04:10 BUN 26 mg/dL (7-18) H 11/13/23 04:10 Creatinine 0.85 mg/dL (0.70-1.30) 11/13/23 04:10 Glucose 109 mg/dL (74-106) H 11/13/23 04:10 Magnesium 2.4 mg/dL (1.6-2.4) 11/13/23 04:10 Total Bilirubin 0.3 mg/dL (0.2-1.0) 11/13/23 04:10 AST 18 U/L (15-37) 11/13/23 04:10 ALT 31 U/L (16-61) 11/13/23 04:10 Alkaline Phosphatase 59 U/L (45-117) 11/13/23 04:10 Triglycerides 59 mg/dL (<150) 11/13/23 04:10 Cholesterol 97 mg/dL (<200) 11/13/23 04:10 HDL Cholesterol 42 mg/dL (40-60) 11/13/23 04:10 Cholesterol/HDL Ratio 2.31 11/13/23 04:10 Lipase 18 U/L (13-75) 11/12/23 14:34 <Mckeon,Jojo Rocky - Last Filed: 11/13/23 15:57> Vital Signs/Physical Exam: Temp Pulse Resp BP Pulse Ox 97.4 F 67 16 114/55 L 92 11/13/23 15:55 11/13/23 15:55 11/13/23 15:55 11/13/23 15:55 11/13/23 15:55 Laboratory Data at Discharge: WBC 6.70 thou/uL (4.3-10.9) 11/13/23 04:10 Hgb 10.0 g/dL (13.6-17.9) L D 11/13/23 04:10 Hct 29.6 % (39.6-49.0) L 11/13/23 04:10 Plt Count 205 thou/uL (152-406) 11/13/23 04:10 PT 13.1 SECONDS (9.5-12.5) H 11/12/23 14:34 INR 1.20 11/12/23 14:34 Sodium 141 mEq/L (136-145) 11/13/23 04:10 Potassium 3.8 mEq/L (3.5-5.1) 11/13/23 04:10 BUN 26 mg/dL (7-18) H 11/13/23 04:10 Creatinine 0.85 mg/dL (0.70-1.30) 11/13/23 04:10 Glucose 109 mg/dL (74-106) H 11/13/23 04:10 Magnesium 2.4 mg/dL (1.6-2.4) 11/13/23 04:10 Total Bilirubin 0.3 mg/dL (0.2-1.0) 11/13/23 04:10 AST 18 U/L (15-37) 11/13/23 04:10 ALT 31 U/L (16-61) 11/13/23 04:10 Alkaline Phosphatase 59 U/L (45-117) 11/13/23 04:10 Triglycerides 59 mg/dL (<150) 11/13/23 04:10 Cholesterol 97 mg/dL (<200) 11/13/23 04:10 HDL Cholesterol 42 mg/dL (40-60) 11/13/23 04:10 Cholesterol/HDL Ratio 2.31 11/13/23 04:10 Lipase 18 U/L (13-75) 11/12/23 14:34 <Adali Smith - Last Filed: 11/13/23 17:09> Diet: AHA Activity: Ad chevy <Jojo Mckeon - Last Filed: 11/13/23 15:57> <Adali Smith - Last Filed: 11/13/23 17:09> Home Medications: RX: Albuterol Neb [Proventil 0.083% Neb Soln] 2.5 mg NEB [id number] 30 Days #120 amp 11/13/23 RX: Amiodarone HCl [Cordarone*] 200 mg PO DAILY 30 Days #30 tab 11/13/23 RX: Atorvastatin Calcium [Lipitor] 40 mg PO BEDTIME 30 Days #30 tab 11/13/23 RX: Metoprolol Tartrate [Lopressor*] 50 mg PO BID 30 Days #30 tab 11/13/23 RX: Polyethyl Gly 3350 [Glycolax*] 17 gm PO DAILY #1 udbot 11/13/23 New Medications: RX: Albuterol Neb [Proventil 0.083% Neb Soln] 2.5 mg NEB [id number] 30 Days #120 amp RX: Amiodarone HCl [Cordarone*] 200 mg PO DAILY 30 Days #30 tab RX: Polyethyl Gly 3350 [Glycolax*] 17 gm PO DAILY #1 udbot RX: Atorvastatin Calcium [Lipitor] 40 mg PO BEDTIME 30 Days #30 tab RX: Metoprolol Tartrate [Lopressor*] 50 mg PO BID 30 Days #30 tab Physician Discharge Instructions: [place] to DC IV and DC home Follow-up with primary care provider in 1 to 2 weeks Follow-up with cardiology in 1 to 2-week Please call the inpatient unit for any questions or concerns regarding hospital stay Return to the ER for worsening symptoms Continue current medications, return to Cardiac Rehab as scheduled Followup: OOT,OOT [Primary Care Provider] - Vaughn Corea MD [ACTIVE - CAN ADMIT] -
[2023-11-13 16:34] VITALS: BP 114/55; TEMP 97.4
--- NOTE | 2023-11-13 20:25 | CON ---
Date of Consultation: 11/13/2023 Reason For Consultation: Chest pain. History Of Present Illness: This is a 78-year-old male with history of coronary artery disease, stat us post triple-vessel CABG back in September at [facility] in [place], has history of hypertension, dysl ipidemia, COPD, CHF, who presented with chest pain above the left side, sharp in nature and it gets e xacerbated with palpation of the chest wall, not related to exertion. No exertional symptoms. Has s hortness of breath with minimal exertion. He has been doing cardiac rehab and denies having any exer tional chest pain. Past Medical History: As outlined above in the HPI. Medications: Refer reconciliation sheet for detailed list. Allergies: CODEINE AND PENICILLIN. Family History: No premature coronary artery disease or cancer. Social History: Does not smoke or drink. Does not use any drugs. Review of Systems: All systems reviewed are negative except mentioned in HPI. Physical Examination: Vital Signs: Reviewed. Head and Neck: Pupils are equal, reactive to light. Intact eye movements. No JVD. No cervical lym phadenopathy. Neck is supple. Thyroid is not enlarged. Lungs: Clear to auscultation bilaterally. No rhonchi, rales, or crackles. No accessory muscle use. Heart: Regular rate and rhythm. No extra sounds. Abdomen: Soft, nontender. Bowel sounds positive. No organomegaly. No mass or hernia. No rigidity or rebound. Extremities: No edema, clubbing, cyanosis. Intact pulses. Skin: No rash or nodule. Neurologic: Alert, awake, oriented x3. No acute focal deficits appreciated. Investigations: BUN 26, creatinine 0.8. Troponins times 4 negative. BNP is 502. Hemoglobin is 10. Assessment/recommendation: 1.Chest pain. It is reproducible. This is musculoskeletal chest pain. Cardiac enzymes are negativ e. No further cardiac workup is needed. He had recent CABG. From cardiology standpoint, the patien t can be released and to follow up as an outpatient. We will obtain an echo as an outpatient as echo probably will not be feasible on the weekend. 2.Hypertension. Blood pressure is well controlled. Continue on medication. 3.Dyslipidemia. Continue Lipitor 40 mg q.h.s. 4.History of congestive heart failure. Appears to be euvolemic. Switch Lasix to oral. SR/MODL Voice ID: [id number] Report ID: [id number]
[2023-11-14] MEDS ORDERED: PANTOPRAZOLE 40MG TABLET PO SCH (07:30)
== END 2023-11-13 17:36 | disposition home or self-care (01) ==
LOC: ER 13:33 → ERHOLD 18:39 → 4TH 19:46
PROVIDERS: ADMIT Hospitalist; ATTEND Hospitalist
DX: R07.9 Chest pain, unspecified (principal); I50.40 Unspecified combined systolic (congestive) and diastolic (congestive) heart failure; R06.02 Shortness of breath; I10 Essential (primary) hypertension; E78.5 Hyperlipidemia, unspecified; J44.9 Chronic obstructive pulmonary disease, unspecified; F32.A Depression, unspecified; F41.9 Anxiety disorder, unspecified; Z88.0 Allergy status to penicillin; Z88.5 Allergy status to narcotic agent; Z95.1 Presence of aortocoronary bypass graft; E66.9 Obesity, unspecified; Z68.28 Body mass index [BMI] 28.0-28.9, adult
CPT/HCPCS: 93005; 85025 ×2; 81001; 80048; 36415; 83735 ×2; 85610; 80061; 80076; 84484 ×4; 83690; 80053; 83880; 71045; 97116; 97161; 94640; 96374; 99285; J1940 ×2; J7614; J7613 ×4; J7644; C9113; J1650 ×2; G0378 ×3